=== PATIENT | female | born 1970 | race Caucasian/White ===

== ENCOUNTER 2017-06-30 23:39 | Emergency (ER) | payer OTHER ==
[~2017-06-30] VITALS: Ht 162.6 cm; Wt 59.2 kg
[~2017-06-30 23:39] MED LIST: ALLERGY RELIEF10 M1 PO; BUSPAR10 MG PO; BUSPAR5 MG PO; BUSPIRONE HCL10 MG PO; CELEXA20 MG PO; CLARITIN,ALAVAR10 MG PO; ESCITALOPRAM OX20 MG PO; LEXAPRO10 MG PO; LEXAPRO20 MG PO; LEXAPRO5 MG PO; LORAZEPAM1 MG PO; MOTRIN800 MG PO; NAPROSYN250 MG PO; PRILOSEC OTC20 MG PO; REWETTING DROPS20 ML BOTH EYES; TYLENOL EXTRA500 MG PO; ZANTAC150 MG PO
[2017-07-01 00:37] LABS: HEMATOCRIT 44.8 % (36.0-46.0); HEMOGLOBIN 15.4 G/DL (11.9-15.5); MCH 32.6 PG (29.0-34.0); MCHC 34.4 G/DL (30.0-36.0); MCV 94.9 FL (83-99); PLATELET COUNT 189 K/uL (156-360); RBC DIS.WIDTH-CV 13.6 % (11.8-14.6); RBC DIS.WIDTH-SD 47.7 % (39-53); RED BLOOD COUNT 4.72 M/uL (3.80-5.20); WHITE BLOOD COUNT 7.3 K/uL (4.1-10.2)
[2017-07-01 00:46] LABS: ALBUMIN 3.3 g/dL (3.2-4.8); CHLORIDE 102 mEq/L (99-109); SODIUM 144 mEq/L (136-147)
[2017-07-01 00:47] LABS: APPEARANCE CLEAR ((CLEAR)); BILIRUBIN NEGATIVE; BLOOD NEGATIVE; COLOR STRAW ((YELLOW)); GLUCOSE (STRIP) NEGATIVE; KETONES NEGATIVE; LEUKOCYTES SMALL; NITRITE NEGATIVE; PROTEIN (STRIP) NEGATIVE; SPECIFIC GRAVITY 1.004 (1.000-1.030); UROBILINOGEN 0.2 MG/DL (0.2-1.0)
[2017-07-01 00:48] LABS: GLUCOSE 108 mg/dL (70-99); TOTAL PROTEIN 6.3 g/dL (6.4-8.3)
[2017-07-01 00:49] LABS: BACTERIA NONE SEEN /HPF; EPITHELIAL CELLS RARE /HPF; MUCUS NONE SEEN /LPF; RED BLOOD CELLS 0-5 /HPF (0-5)
[2017-07-01 00:50] LABS: TOTAL BILIRUBIN 0.2 mg/dL (0.0-1.0)
[2017-07-01 00:51] LABS: SERUM ETHYL ALCOHOL 151 mg/dL
[2017-07-01 00:52] LABS: ALKALINE PHOSPHATASE 115 IU/L (3-129); CREATININE 0.7 mg/dL (0.6-1.3); GFR ESTIMATE (CALCULATED) > 59 mL/min/
[2017-07-01 00:53] LABS: AST (GOT) 18 IU/L (2-34); UREA NITROGEN (BUN) 5 mg/dL (9-23)
[2017-07-01 00:54] LABS: POTASSIUM 2.4 mEq/L (3.7-5.4)
[2017-07-01 00:55] LABS: ALT (GPT) 13 IU/L (3-49)
[2017-07-01 00:59] LABS: AMPHETAMINE NEGATIVE (500 ng/mL); BARBITURATES NEGATIVE (200 ng/mL); BENZODIAZEPINES NEGATIVE (150 ng/mL); BUPRENORPHINE NEGATIVE (10 ng/mL); COCAINE PRESUMPTIVE POSITIVE (150 ng/mL); METHADONE NEGATIVE (200 ng/mL); METHAMPHETAMINE NEGATIVE (500 ng/mL); OPIATES (MORPHINE) NEGATIVE (100 ng/mL); OXYCODONE NEGATIVE (100 ng/mL); PHENCYCLIDINE NEGATIVE (25 ng/mL); PROPOXYPHENE NEGATIVE (300 ng/mL); THC CANNABINOIDS NEGATIVE (50 ng/mL); TRICYCLIC ANTIDEPRESSANTS NEGATIVE (300 ng/mL)
[2017-07-01 03:36] LABS: MAGNESIUM 1.9 mg/dL (1.3-2.7)
[2017-07-01 05:57] LABS: CHLORIDE 107 mEq/L (99-109); SODIUM 146 mEq/L (136-147)
[2017-07-01 05:59] LABS: GLUCOSE 93 mg/dL (70-99); POTASSIUM 3.6 mEq/L (3.7-5.4)
[2017-07-01 06:02] LABS: SERUM ETHYL ALCOHOL < 10 mg/dL
[2017-07-01 06:03] LABS: CREATININE 0.6 mg/dL (0.6-1.3); GFR ESTIMATE (CALCULATED) > 59 mL/min/
[2017-07-01 06:04] LABS: UREA NITROGEN (BUN) 5 mg/dL (9-23)
[2017-07-01 08:39] VITALS: BP 128/74
== END 2017-07-01 08:41 | disposition home or self-care (01) ==
LOC: EME 23:39
PROVIDERS: Physician Assistant
DX: S50.811A Abrasion of right forearm, initial encounter (principal); F14.129 Cocaine abuse with intoxication, unspecified; E87.6 Hypokalemia; R45.851 Suicidal ideations; F41.9 Anxiety disorder, unspecified; F32.9 Major depressive disorder, single episode, unspecified; F17.200 Nicotine dependence, unspecified, uncomplicated; Y90.6 Blood alcohol level of 120-199 mg/100 ml; X78.0XXA Intentional self-harm by sharp glass, initial encounter; Z85.44 Personal history of malignant neoplasm of other female genital organs; Z88.5 Allergy status to narcotic agent; Z88.3 Allergy status to other anti-infective agents
CPT/HCPCS: 80048 91; 80053; 81003; 83735; 84999; 85027; 90837; 93005; 99281; 99285; G0480

== ENCOUNTER 2017-11-23 23:18 | Emergency (ER) | payer OTHER ==
[~2017-11-23] VITALS: Ht 170.2 cm; Wt 59.2 kg
[2017-11-24 00:50] LABS: BASOPHIL (%) 0.6 % (0-1); EOSINOPHIL (%) 2.9 % (0-5); EOSINOPHIL COUNT 0.2 K/uL (0-0.3); HEMATOCRIT 45.4 % (36.0-46.0); HEMOGLOBIN 15.7 G/DL (11.9-15.5); IMMATURE GRANULOCYTE (%) 0.2 % (0.0-0.7); LYMPHOCYTE (%) 23.1 % (15-42); LYMPHOCYTE COUNT 1.2 K/uL (1.0-2.8); MCH 33.9 PG (29.0-34.0); MCHC 34.6 G/DL (30.0-36.0); MCV 98.1 FL (83-99); MONOCYTE (%) 5.6 % (3-12); MONOCYTE COUNT 0.3 K/uL (0-0.8); NEUTROPHIL (%) 67.6 % (45-76); NEUTROPHIL COUNT 3.5 K/uL (1.8-6.4); PLATELET COUNT 169 K/uL (156-360); RBC DIS.WIDTH-CV 13.2 % (11.8-14.6); RBC DIS.WIDTH-SD 48.1 % (39-53); RED BLOOD COUNT 4.63 M/uL (3.80-5.20); WHITE BLOOD COUNT 5.2 K/uL (4.1-10.2)
[2017-11-24 00:59] LABS: CHLORIDE 110 mEq/L (99-109); POTASSIUM 3.8 mEq/L (3.7-5.4); SODIUM 144 mEq/L (136-147)
[2017-11-24 01:01] LABS: GLUCOSE 106 mg/dL (70-99)
[2017-11-24 01:04] LABS: CREATININE 0.7 mg/dL (0.6-1.3); GFR ESTIMATE (CALCULATED) > 59 mL/min/; SERUM ETHYL ALCOHOL 180 mg/dL
[2017-11-24 01:06] LABS: UREA NITROGEN (BUN) 9 mg/dL (9-23)
[2017-11-24 01:08] LABS: ACETAMINOPHEN (TYLENOL) < 10 mcg/mL (10-30); SALICYLATE < 5.0 MG/DL (15-30)
[2017-11-24 01:15] LABS: QUANTITATIVE HCG 5.1 MIU/ML
[2017-11-24 06:08] LABS: AMPHETAMINE NEGATIVE (500 ng/mL); BARBITURATES NEGATIVE (200 ng/mL); BENZODIAZEPINES NEGATIVE (150 ng/mL); BUPRENORPHINE NEGATIVE (10 ng/mL); COCAINE PRESUMPTIVE POSITIVE (150 ng/mL); METHADONE NEGATIVE (200 ng/mL); METHAMPHETAMINE NEGATIVE (500 ng/mL); OPIATES (MORPHINE) NEGATIVE (100 ng/mL); OXYCODONE NEGATIVE (100 ng/mL); PHENCYCLIDINE NEGATIVE (25 ng/mL); PROPOXYPHENE NEGATIVE (300 ng/mL); THC CANNABINOIDS PRESUMPTIVE POSITIVE (50 ng/mL); TRICYCLIC ANTIDEPRESSANTS NEGATIVE (300 ng/mL)
[2017-11-24 06:16] VITALS: BP 125/75
== END 2017-11-24 06:47 | disposition home or self-care (01) ==
LOC: EME 23:18
PROVIDERS: Emergency Medicine
DX: F43.20 Adjustment disorder, unspecified (principal); T23.201A Burn of second degree of right hand, unspecified site, initial encounter; T23.202A Burn of second degree of left hand, unspecified site, initial encounter; X76.XXXA Intentional self-harm by smoke, fire and flames, initial encounter; Y92.002 Bathroom of unspecified non-institutional (private) residence as the place of occurrence of the external cause; F14.129 Cocaine abuse with intoxication, unspecified; F10.129 Alcohol abuse with intoxication, unspecified; Y90.6 Blood alcohol level of 120-199 mg/100 ml; F17.200 Nicotine dependence, unspecified, uncomplicated; F32.9 Major depressive disorder, single episode, unspecified; F41.9 Anxiety disorder, unspecified; Z85.44 Personal history of malignant neoplasm of other female genital organs; Z87.19 Personal history of other diseases of the digestive system; Z91.5 Personal history of self-harm; Z88.5 Allergy status to narcotic agent; Z88.8 Allergy status to other drugs, medicaments and biological substances
CPT/HCPCS: 80048; 84702; 84999; 85025; 90837; 99281; 99285; G0480